=== PATIENT | female | born 1990 | race Caucasian/White ===

== ENCOUNTER 2020-07-25 12:08 | Inpatient (IN) | payer OTHER ==
[2020-08-20] MEDS ORDERED: Bupivacaine 0.25% HCL 30 ML VIAL ONE (08:00)
[2020-08-20] MEDS ORDERED: HYDROcodone/Acetaminophen 5/325 mg Tablet PO PRN (20:07)
[2020-08-20] MEDS ORDERED: Ibuprofen 800 MG TAB PO PRN (20:07)
[2020-08-20] MEDS ORDERED: hydrALAZINE 20 MG/ML VIAL SLOW IVP PRN (20:07)
[2020-08-20] MEDS ORDERED: Lidocaine 1% (PF) 30 ML VIAL SC PRN (20:07)
[2020-08-20] MEDS ORDERED: Ondansetron PF 4 MG/2 ML Vial IVP PRN (20:07)
[2020-08-20] MEDS ORDERED: Promethazine HCl 25 MG/ML VIAL IM PRN (20:07)
[2020-08-20] MEDS ORDERED: Carboprost 250 MCG/ML AMP IM PRN (20:07)
[2020-08-20] MEDS ORDERED: Misoprostol 200 MCG TAB PR PRN (20:07)
[2020-08-20] MEDS ORDERED: Methylergonovine 0.2 MG/ML VIAL IM PRN (20:07)
[2020-08-20] MEDS ORDERED: Acetaminophen 500 MG TAB PO PRN (20:07)
[2020-08-20] MEDS ORDERED: Butorphanol Tartrate 1 MG/ML VIAL SLOW IVP PRN (20:07)
[2020-08-20] MEDS ORDERED: Diphenoxylate HCl/Atropine Tablet PO PRN (20:07)
[2020-08-20 20:09] VITALS: BMI 33.3
[2020-08-20] MEDS ORDERED: NS w/ Oxytocin 30 units 500 ML IVPB PRN (20:14)
[2020-08-20] MEDS ORDERED: NS w/ Oxytocin 30 units 500 ML IVPB SCH (20:15)
[2020-08-20 20:58] LABS: Hemoglobin 12.2 g/dL (12.0-15.5); Mean Corpuscular Hemoglobin 29.3 pg (27.0-33.0); Mean Corpuscular Volume 86.3 fl (81.6-98.3); Mean Platelet Volume 10.6 fl (7.4-10.4); Platelet Count 298 10x3/uL (150-450); RBC Distribution Width 14.3 % (11.5-14.5); Red Blood Cell (RBC) Count 4.16 10x6/uL (3.90-5.03); White Blood Cell (WBC) Count 12.8 10x3/uL (3.5-10.5)
[2020-08-20] MEDS: Misoprostol 100 MCG TAB VAG SCH (21:00)
[2020-08-20] MEDS: Lactated Ringer's 1,000 ML IV SCH (21:01)
[2020-08-20 21:29] LABS: Hep B Surf Ag Non-Reactive S/CO (NonReactive)
[2020-08-20 21:30] LABS: Syphilis Antibody Nonreactive (Nonreactive); Syphilis Antibody Index 0.05 S/CO (<1.00 Non-Reactive)
[2020-08-20 22:01] LABS: HBSAg Index 0.21 S/CO (0-0.99)
[2020-08-21] MEDS: Misoprostol 100 MCG TAB VAG SCH (02:19)
[2020-08-21 03:22] LABS: ALT (SGPT) 13 U/L (8-55); AST (SGOT) 20 U/L (5-34); Albumin 3.5 g/dL (3.5-5.0); Alkaline Phosphatase 164 U/L (40-110); Anion Gap 17 mmol/L (10-20); BUN (Urea Nitrogen) 8 mg/dL (7.0-18.7); Bilirubin, Total 0.2 mg/dL (0.2-1.2); Calc. Creatinine Clearance 154 mL/min (70-130); Calcium 9.7 mg/dL (7.8-10.44); Carbon Dioxide 17 mmol/L (22-29); Chloride 108 mmol/L (98-107); Globulin 3.2 g/dL (2.4-3.5); Glucose 78 mg/dL (70-105); Potassium 3.9 mmol/L (3.5-5.1); Protein, Total 6.7 g/dL (6.0-8.3); Sodium 138 mmol/L (136-145)
[2020-08-21] MEDS ORDERED: Fentanyl 4 mcg/Bup 0.1% Cadd 100 ML ONE ×2 (05:26→13:28)
[2020-08-21] MEDS ORDERED: diphenhydrAMINE 50 MG/ML VIAL IVP PRN (06:37)
[2020-08-21] MEDS ORDERED: Acetaminophen 325 MG TAB PO PRN (06:37)
[2020-08-21] MEDS ORDERED: Promethazine HCl 25 MG/ML VIAL IM PRN ×2 (06:37→23:56)
[2020-08-21] MEDS ORDERED: Naloxone HCl 0.4 mg/ml Vial IVP PRN ×2 (06:37)
[2020-08-21] MEDS ORDERED: Lactated Ringer's 500 ML IV PRN (06:37)
[2020-08-21] MEDS ORDERED: Ondansetron PF 4 MG/2 ML Vial IVP PRN ×2 (06:37→23:56)
[2020-08-21] MEDS: Lactated Ringer's 1,000 ML IV SCH (06:41)
[2020-08-21] MEDS ORDERED: Communication Order-Pharmacy FS SCH (06:45)
[2020-08-21] MEDS ORDERED: Fentanyl 4 mcg/Bupivacaine 0.1% Cassette 100 ML EPIDURAL SCH (06:45)
[2020-08-21] MEDS ORDERED: ePHEDrine Sulfate 50 MG/10 ML VIAL SLOW IVP PRN (06:51)
[2020-08-21] MEDS ORDERED: Calcium Carbonate 500 MG ChewTAB PO PRN (16:46)
[2020-08-21 19:39] LABS: pH (Cord, venous) 7.322 (7.250-7.350)
[2020-08-21] MEDS ORDERED: Milk Of Magnesia 30 ML UDCUP PO PRN (23:56)
[2020-08-21] MEDS ORDERED: NS / Oxytocin 40 units/1000ml 1,000 ML IV SCH (23:56)
[2020-08-21] MEDS ORDERED: hydrALAZINE 20 MG/ML VIAL SLOW IVP PRN (23:56)
[2020-08-21] MEDS ORDERED: diphenhydrAMINE 25 MG CAP PO PRN (23:56)
[2020-08-21] MEDS ORDERED: Preparation H Ointment 28 GM TUBE PR PRN (23:56)
[2020-08-21] MEDS ORDERED: HYDROcodone/Acetaminophen 5/325 mg Tablet PO PRN ×2 (23:56)
[2020-08-21] MEDS ORDERED: Bisacodyl 10 MG SUPP PR PRN (23:56)
[2020-08-21] MEDS ORDERED: Lanolin Ointment 7 GM TUBE TOP PRN (23:56)
[2020-08-21] MEDS ORDERED: Benzocaine-Menthol 82.5 ML CAN TOP PRN (23:56)
[2020-08-22] MEDS ORDERED: NS w/ Oxytocin 30 units 500 ML IV SCH (00:30)
[2020-08-22] MEDS ORDERED: Docusate Calcium (SURFAK) 240 MG CAP PO SCH (00:45)
[2020-08-22] MEDS ORDERED: Adacel (T-DAP) 0.5 ML SYRINGE IM ONE (09:00)
[2020-08-22] MEDS: Prenatal Vitamin 1 TAB PO SCH (09:25)
[2020-08-22] MEDS: Docusate Calcium (SURFAK) 240 MG CAP PO SCH (09:25)
[2020-08-22] MEDS: Ibuprofen 800 MG TAB PO SCH ×2 (09:25→17:56)
[2020-08-22] MEDS: Ferrous Sulfate 325 MG TAB PO SCH ×2 (09:27→17:44)
[2020-08-22] MEDS: Misoprostol 100 MCG TAB VAG SCH ×4 (10:38→10:42)
[2020-08-22] MEDS: Lactated Ringer's 1,000 ML IV SCH (10:42)
[2020-08-22 20:43] VITALS: TEMP 98.9
[2020-08-23] MEDS: Ibuprofen 800 MG TAB PO SCH ×2 (00:29→06:02)
[2020-08-23] MEDS: Docusate Calcium (SURFAK) 240 MG CAP PO SCH ×2 (00:29→08:41)
[2020-08-23] MEDS: Ferrous Sulfate 325 MG TAB PO SCH (07:09)
[2020-08-23 07:55] VITALS: BP 130/78
[2020-08-23] MEDS: Prenatal Vitamin 1 TAB PO SCH (08:41)
== END 2020-08-23 13:45 | disposition home or self-care (01) | DRG 807 ==
LOC: EDSTATUS 08-20 15:11 → CSHLD 08-20 19:33 → CSHPED 08-22 08:33
PROVIDERS: ADMIT Student in an Organized Health Care Education/Training Program; ATTEND Student in an Organized Health Care Education/Training Program
PROC: 10E0XZZ Delivery of Products of Conception, External Approach (ICD-10-PCS; principal; 2020-08-21)
PROC: 10907ZC Drainage of Amniotic Fluid, Therapeutic from Products of Conception, Via Natural or Artificial Opening (ICD-10-PCS; 2020-08-21)
PROC: 3E033VJ Introduction of Other Hormone into Peripheral Vein, Percutaneous Approach (ICD-10-PCS; 2020-08-21)
PROC: 3E0P7VZ Introduction of Hormone into Female Reproductive, Via Natural or Artificial Opening (ICD-10-PCS; 2020-08-21)
DX: O13.4 Gestational [pregnancy-induced] hypertension without significant proteinuria, complicating childbirth (principal); Z20.822 Contact with and (suspected) exposure to COVID-19; Z37.0 Single live birth; Z3A.39 39 weeks gestation of pregnancy
CPT/HCPCS: 36415; 51702; 80053; 82805; 85027; 86780; 86850; 86900; 86901; 87340; 87635; J2590; S0020; U0003; U0005

== ENCOUNTER 2020-08-16 16:50 | Day surgery (SDC) | payer OTHER ==
[2020-08-16] MEDS ORDERED: hydrALAZINE 20 MG/ML VIAL SLOW IVP PRN (17:29)
[2020-08-16 17:48] VITALS: BMI 33.7
[2020-08-16 18:04] LABS: #Basophils 0.1 10x3/uL (0.0-0.2); #Eosinphils 0.2 10x3/uL (0.0-0.5); %Basophils 0.4 % (0.0-2.0); %Eosinophils 1.1 % (0.0-6.0); %Lymphocytes 16.3 % (18.0-47.0); %Monocytes 7.3 % (0.0-10.0); %Neutrophils 73.4 % (40.0-75.0); Hemoglobin 12.3 g/dL (12.0-15.5); Mean Corpuscular HGB CONC 33.4 g/dL (32.0-36.0); Mean Corpuscular Hemoglobin 28.6 pg (27.0-33.0); Mean Corpuscular Volume 85.6 fl (81.6-98.3); Mean Platelet Volume 10.2 fl (7.4-10.4); Platelet Count 290 10x3/uL (150-450); RBC Distribution Width 14.2 % (11.5-14.5); White Blood Cell (WBC) Count 13.6 10x3/uL (3.5-10.5)
[2020-08-16 18:08] LABS: Creatinine, Urine 37.26 mg/dL (47-110); Protein, Urine Random Quant Less than 10 mg/dL (1-14)
[2020-08-16 18:12] LABS: AST (SGOT) 20 U/L (5-34); Anion Gap 15 mmol/L (10-20); BUN (Urea Nitrogen) 9 mg/dL (7.0-18.7); Calc. Creatinine Clearance 161 mL/min (70-130); Calcium 9.8 mg/dL (7.8-10.44); Carbon Dioxide 20 mmol/L (22-29); Chloride 105 mmol/L (98-107); Glucose 71 mg/dL (70-105)
[2020-08-16 18:20] LABS: Potassium 3.7 mmol/L (3.5-5.1); Sodium 136 mmol/L (136-145)
== END 2020-08-16 18:30 | disposition home or self-care (01) ==
LOC: CSHLD/OP 16:50
PROVIDERS: ATTEND Student in an Organized Health Care Education/Training Program
DX: O99.891 Other specified diseases and conditions complicating pregnancy (principal); R03.0 Elevated blood-pressure reading, without diagnosis of hypertension; Z3A.39 39 weeks gestation of pregnancy
CPT/HCPCS: 80048; 82570; 84156; 84450; 85025; 99284

== ENCOUNTER 2020-08-17 12:56 | Outpatient (CLI) | payer OTHER ==
[2020-08-17 23:17] LABS: SARS-CoV-2 PCR by NAA Not Detected (NotDetected)
== END 2020-08-17 12:57 | disposition home or self-care (01) ==
LOC: CSHLAB 12:56
PROVIDERS: ATTEND Student in an Organized Health Care Education/Training Program
DX: Z20.822 Contact with and (suspected) exposure to COVID-19 (principal)
CPT/HCPCS: 87635; U0003; U0005